=== PATIENT | male | born 1940 | race Caucasian/White ===

== ENCOUNTER 2018-11-13 04:03 | Emergency (ER) | payer BC ==
[~2018-11-13] VITALS: Ht 152.4 cm; Wt 80.7 kg
[2018-11-13] MEDS ORDERED: COUMADIN2.5 MG (04:10)
[2018-11-13] MEDS ORDERED: SIMVASTATIN5 MG (04:10)
[2018-11-13] MEDS ORDERED: AVODART0.5 MG (04:10)
[2018-11-13] MEDS ORDERED: ZESTRIL5 MG (04:10)
== END 2018-11-13 12:03 | disposition home or self-care (01) ==
LOC: ER 04:03
DX: K58.8 Other irritable bowel syndrome (principal); K80.80 Other cholelithiasis without obstruction; N28.1 Cyst of kidney, acquired; K40.90 Unilateral inguinal hernia, without obstruction or gangrene, not specified as recurrent; R10.32 Left lower quadrant pain